=== PATIENT | male | born 1950 | race Caucasian/White ===

== ENCOUNTER → 2017-03-14 | Outpatient (CLI) | payer OTHER ==
[2017-03-14 12:59] LABS: Urine RBC None Seen /hpf (0 - 3)
[2017-03-14 13:02] LABS: Basophils # (auto) 0 uL; Basophils % (auto) 0.9 % (0.0-2.0); Eosinophils # (auto) 0.4 uL; Eosinophils % (auto) 6.7 % (0.0-7.0); Hematocrit 42.4 % (41.0-53.0); Hemoglobin 14.8 g/dL (13.5-17.5); Lymphocytes # (auto) 1.3 uL; Lymphocytes % (auto) 24.2 % (10.0-50.0); Mean Corpuscular Hemoglobin 30.9 pg (28.0-32.0); Mean Corpuscular Hgb Conc. 34.9 g/dL (32.0-36.0); Mean Corpuscular Volume 88.5 fL (80.0-100.0); Mean Platelet Volume 7.9 fL (7.4-10.4); Monocytes # (auto) 0.4 uL; Monocytes % (auto) 7.2 % (0.0-12.0); Neutrophils # (auto) 3.4 uL; Platelet Count (auto) 220 10^3/uL (140-450); Red Cell Distribution Width 12.6 % (11.6-16.0); White Blood Cell 5.5 10^3/uL (4.4-10.8)
[2017-03-14 13:09] LABS: Urine Bilirubin Negative (Negative); Urine Blood Negative /uL (Negative); Urine Color Yellow (Yellow); Urine Glucose Normal (Normal); Urine Ketone Negative (Negative); Urine Mucus FEW (None Seen); Urine Nitrite Negative (Negative); Urine Urobilinogen Normal (Negative)
[2017-03-14 13:37] LABS: Albumin 3.9 g/dL (3.4-5.0); Alkaline Phosphatase 86 U/L (45-117); Anion Gap 11 (5-15); Aspartate Aminotransferase 55 U/L (15-37); BUN/Creatinine Ratio 20.9; Blood Urea Nitrogen 27 mg/dL (7-18); Calcium 9.6 mg/dL (8.5-10.1); Carbon Dioxide 25 mmol/L (21-32); Chloride 104 mmol/L (98-107); Cholesterol 133 mg/dL (< 200); GFR African American 72 mL/min; GFR Non-African American 59 mL/min; Glucose 248 mg/dL (74-106); HDL Cholesterol 31 mg/dL (40-59); Sodium 140 mmol/L (136-145); Total Protein 7.4 g/dL (6.4-8.2); Triglycerides 439 mg/dL (< 150)
== END | disposition home or self-care (01) ==
LOC: LAB 12:40
PROVIDERS: ATTEND Internal Medicine
DX: Z00.01 Encounter for general adult medical examination with abnormal findings (principal); I10 Essential (primary) hypertension; E78.2 Mixed hyperlipidemia
CPT/HCPCS: 36415; 80053; 80061; 81001; 82043; 83036; 84153; 84443; 85025

== ENCOUNTER → 2017-06-27 | Outpatient (CLI) | payer OTHER ==
[2017-06-27 14:59] LABS: Bilirubin, Total 1.1 mg/dL (0.2-1.0); Calcium 9.2 mg/dL (8.5-10.1); Potassium 4.4 mmol/L (3.5-5.1); Total Protein 7.7 g/dL (6.4-8.2)
== END | disposition home or self-care (01) ==
LOC: LAB 13:59
PROVIDERS: ATTEND Internal Medicine
DX: Z00.00 Encounter for general adult medical examination without abnormal findings (principal); I10 Essential (primary) hypertension; E78.2 Mixed hyperlipidemia
CPT/HCPCS: 36415; 80053; 80061; 83036

== ENCOUNTER → 2017-07-05 | Outpatient (CLI) | payer OTHER | END | disposition home or self-care (01) | LOC: LAB 15:53 | PROVIDERS: ATTEND Allergy & Immunology | DX: L50.0 Allergic urticaria (principal) ==

== ENCOUNTER → 2017-12-13 | Outpatient (CLI) | payer OTHER ==
[2017-12-13 14:21] LABS: BUN/Creatinine Ratio 27.1; Potassium 4.2 mmol/L (3.5-5.1); Total Protein 7.4 g/dL (6.4-8.2)
== END | disposition home or self-care (01) ==
LOC: LAB 13:15
PROVIDERS: ATTEND Physician Assistant
DX: I10 Essential (primary) hypertension (principal); E11.65 Type 2 diabetes mellitus with hyperglycemia; H81.02 Meniere's disease, left ear
CPT/HCPCS: 36415; 80053; 83036

== ENCOUNTER → 2018-02-06 | Outpatient (CLI) | payer OTHER | END | disposition home or self-care (01) | LOC: LAB 11:43 | PROVIDERS: ATTEND Psychiatry & Neurology Neurology | DX: M31.6 Other giant cell arteritis (principal) | CPT/HCPCS: 36415; 85652 ==

== ENCOUNTER → 2018-03-12 | Outpatient (CLI) | payer OTHER ==
[2018-03-12 13:16] LABS: Basophils # (auto) 0.1 uL; Basophils % (auto) 1.2 % (0.0-2.0); Eosinophils # (auto) 0.2 uL; Hematocrit 38.5 % (41.0-53.0); Hemoglobin 13.3 g/dL (13.5-17.5); Lymphocytes # (auto) 1.3 uL; Lymphocytes % (auto) 28.1 % (10.0-50.0); Mean Corpuscular Hemoglobin 31.1 pg (28.0-32.0); Mean Corpuscular Hgb Conc. 34.5 g/dL (32.0-36.0); Mean Corpuscular Volume 90.2 fL (80.0-100.0); Monocytes # (auto) 0.3 uL; Monocytes % (auto) 7.3 % (0.0-12.0); Neutrophils # (auto) 2.7 uL; Neutrophils % (auto) 58.4 % (37.0-80.0); Platelet Count (auto) 154 10^3/uL (140-450); Red Blood Cells 4.27 10^6/uL (4.5-5.90); Red Cell Distribution Width 13.2 % (11.8-14.3); White Blood Cell 4.7 10^3/uL (4.4-10.8)
[2018-03-12 13:40] LABS: Albumin 3.6 g/dL (3.4-5.0); BUN/Creatinine Ratio 16.2; Bilirubin, Total 0.8 mg/dL (0.2-1.0); Calcium 9.2 mg/dL (8.5-10.1); Potassium 3.9 mmol/L (3.5-5.1); Total Protein 7.4 g/dL (6.4-8.2)
== END | disposition home or self-care (01) ==
LOC: LAB 12:38
PROVIDERS: ATTEND Physician Assistant
DX: E11.22 Type 2 diabetes mellitus with diabetic chronic kidney disease (principal); N18.2 Chronic kidney disease, stage 2 (mild); K76.0 Fatty (change of) liver, not elsewhere classified; E78.1 Pure hyperglyceridemia; E11.69 Type 2 diabetes mellitus with other specified complication; R53.83 Other fatigue
CPT/HCPCS: 36415; 80053; 80061; 83036; 84153; 84403; 85025

== ENCOUNTER → 2018-03-18 | Outpatient (CLI) | payer OTHER | END | disposition home or self-care (01) | LOC: LAB 15:34 | PROVIDERS: ATTEND Physician Assistant | DX: Z12.11 Encounter for screening for malignant neoplasm of colon (principal); E29.1 Testicular hypofunction; I12.9 Hypertensive chronic kidney disease with stage 1 through stage 4 chronic kidney disease, or unspecified chronic kidney disease; E11.22 Type 2 diabetes mellitus with diabetic chronic kidney disease; N18.2 Chronic kidney disease, stage 2 (mild) | CPT/HCPCS: 36415; 84403 ==

== ENCOUNTER → 2018-11-06 | Outpatient (CLI) | payer OTHER | END | disposition home or self-care (01) | LOC: LAB 11:53 | PROVIDERS: ATTEND Physician Assistant | DX: Z12.11 Encounter for screening for malignant neoplasm of colon (principal); E11.22 Type 2 diabetes mellitus with diabetic chronic kidney disease; E34.9 Endocrine disorder, unspecified | CPT/HCPCS: 36415; 82043; 83036; 84403 ==

== ENCOUNTER 2019-05-18 10:57 | Emergency (ER) | payer OTHER ==
[~2019-05-18] VITALS: Ht 185.4 cm; Wt 124.3 kg
[2019-05-18 12:33] LABS: Alanine Aminotransferase 57 U/L (16-61); Anion Gap 10 (5-15); BUN/Creatinine Ratio 19.4; Blood Urea Nitrogen 24 mg/dL (7-18); Calcium 8.9 mg/dL (8.5-10.1); Carbon Dioxide 25 mmol/L (21-32); Chloride 106 mmol/L (98-107); GFR African American 75 mL/min; GFR Non-African American 62 mL/min; Glucose 251 mg/dL (74-106); Sodium 141 mmol/L (136-145)
[2019-05-18 12:36] LABS: Alkaline Phosphatase 113 U/L (45-117); Aspartate Aminotransferase 27 U/L (15-37); Bilirubin, Total 0.8 mg/dL (0.2-1.0); Total Protein 7.5 g/dL (6.4-8.2)
[2019-05-18 13:47] LABS: Lactic Acid w/Reflex 3.3 mmol/L (0.4-2.0)
[2019-05-18 13:52] LABS: Amylase 95 U/L (25-115); Lipase 201 U/L (73-393)
[2019-05-18 14:25] LABS: Basophils # (auto) 0.1 uL; Basophils % (auto) 0.8 % (0.0-2.0); Eosinophils # (auto) 0.5 uL; Eosinophils % (auto) 7.2 % (0.0-7.0); Hematocrit 42.5 % (41.0-53.0); Hemoglobin 14.9 g/dL (13.5-17.5); Lymphocytes # (auto) 1.8 uL; Lymphocytes % (auto) 24.1 % (10.0-50.0); Mean Corpuscular Hemoglobin 31.9 pg (28.0-32.0); Mean Corpuscular Volume 91.1 fL (80.0-100.0); Monocytes # (auto) 0.8 uL; Monocytes % (auto) 10.3 % (0.0-12.0); Neutrophils # (auto) 4.3 uL; Neutrophils % (auto) 57.6 % (37.0-80.0); Nucleated Red Blood Cells % 0.2 %; Platelet Count (auto) 159 10^3/uL (140-450); Red Blood Cells 4.67 10^6/uL (4.5-5.90); White Blood Cell 7.5 10^3/uL (4.4-10.8)
[2019-05-18] MEDS ORDERED: IOHEXOL 300 MG/ML 100ML BOTTLE IJ ONE (14:35)
[2019-05-18 17:00] VITALS: BP 135/56
[2019-05-18] MEDS ORDERED: SODIUM CHLORIDE 0.9% 1,000 ML IV ONE (17:00)
[2019-05-18] MEDS ORDERED: cefTRIAXone 1GM/50ML D5W 50 ML IV ONE (17:00)
== END 2019-05-18 18:26 | disposition home or self-care (01) ==
LOC: ER 10:59
DX: R07.89 Other chest pain (principal); E11.9 Type 2 diabetes mellitus without complications; L03.211 Cellulitis of face
CPT/HCPCS: 36415; 70487; 80053; 82150; 83605; 83690; 83880; 84484; 85025; 86695; 86696; 87040; 93005; 94761; 96365; 99284; J0696; J7030; Q9967

== ENCOUNTER → 2019-10-21 | Outpatient (CLI) | payer OTHER ==
[2019-10-21 15:32] LABS: Urine Bacteria NONE SEEN /hpf (None Seen); Urine Blood Negative /uL (Negative); Urine Mucus FEW (None Seen); Urine Specific Gravity 1.017 (1.001-1.035); Urine WBC 9 /hpf (0 - 3)
[2019-10-21 15:37] LABS: Basophils # (auto) 0.1 uL; Basophils % (auto) 1.1 % (0.0-2.0); Eosinophils # (auto) 0.5 uL; Eosinophils % (auto) 9.5 % (0.0-7.0); Hematocrit 40.8 % (41.0-53.0); Hemoglobin 14.3 g/dL (13.5-17.5); Lymphocytes # (auto) 1.3 uL; Lymphocytes % (auto) 26.4 % (10.0-50.0); Mean Corpuscular Hemoglobin 31.7 pg (28.0-32.0); Mean Corpuscular Volume 90.5 fL (80.0-100.0); Monocytes # (auto) 0.4 uL; Monocytes % (auto) 8.8 % (0.0-12.0); Neutrophils # (auto) 2.6 uL; Neutrophils % (auto) 54.2 % (37.0-80.0); Nucleated Red Blood Cells % 0.1 %; Platelet Count (auto) 193 10^3/uL (140-450); Red Blood Cells 4.51 10^6/uL (4.5-5.90); Red Cell Distribution Width 12.2 % (11.8-14.3); White Blood Cell 4.7 10^3/uL (4.4-10.8)
[2019-10-21 16:11] LABS: Anion Gap 9 (5-15); Blood Urea Nitrogen 22 mg/dL (7-18); Calcium 9.5 mg/dL (8.5-10.1); Carbon Dioxide 27 mmol/L (21-32); Chloride 105 mmol/L (98-107); Glucose 230 mg/dL (74-106); Potassium 4.8 mmol/L (3.5-5.1); Sodium 141 mmol/L (136-145)
[2019-10-21 16:16] LABS: Alanine Aminotransferase 79 U/L (16-61); Alkaline Phosphatase 82 U/L (45-117); Aspartate Aminotransferase 52 U/L (15-37); BUN/Creatinine Ratio 18.2; Bilirubin, Total 0.8 mg/dL (0.2-1.0); Cholesterol 159 mg/dL (< 200); GFR African American 77 mL/min; GFR Non-African American 63 mL/min; HDL Cholesterol 37 mg/dL (40-59); Total Protein 7.2 g/dL (6.4-8.2); Triglycerides 513 mg/dL (< 150)
== END | disposition home or self-care (01) ==
LOC: LAB 15:03
PROVIDERS: ATTEND Physician Assistant
DX: E11.65 Type 2 diabetes mellitus with hyperglycemia (principal); E11.22 Type 2 diabetes mellitus with diabetic chronic kidney disease; N18.2 Chronic kidney disease, stage 2 (mild); R33.9 Retention of urine, unspecified; E34.9 Endocrine disorder, unspecified; H81.03 Meniere's disease, bilateral; E78.1 Pure hyperglyceridemia
CPT/HCPCS: 36415; 80053; 80061; 81001; 83036; 84153; 84403; 85025

== ENCOUNTER → 2020-01-20 | Outpatient (CLI) | payer OTHER ==
[2020-01-20 15:51] LABS: BUN/Creatinine Ratio 17.3; Calcium 9.7 mg/dL (8.5-10.1); Potassium 4.2 mmol/L (3.5-5.1)
== END | disposition home or self-care (01) ==
LOC: LAB 15:03
PROVIDERS: ATTEND Internal Medicine
DX: I50.9 Heart failure, unspecified (principal); R06.9 Unspecified abnormalities of breathing
CPT/HCPCS: 36415; 80048; 83880

== ENCOUNTER → 2020-02-10 | Outpatient (CLI) | payer OTHER | END | disposition home or self-care (01) | LOC: XYW 10:50 | PROVIDERS: ATTEND Internal Medicine | DX: I44.7 Left bundle-branch block, unspecified (principal) | CPT/HCPCS: 93306 ==

== ENCOUNTER → 2020-04-04 | Outpatient (CLI) | payer OTHER ==
[~2020-04-04] MED LIST: ALBUAER3 IN; ASPI-543 PO; BENZ200C64 PO; CHLO25TA22 PO; FENO145T27 PO; GLIP10TA9 PO; ICOS1CAP PO; MAGN400T40 PO; METF-370 PO; METO25TA5 PO; PIO30T PO; PREG200C19 PO; TAMS0.4C36 PO
[2020-04-04 17:07] LABS: Calcium 8.7 mg/dL (8.5-10.1); Potassium 3.8 mmol/L (3.5-5.1)
== END | disposition home or self-care (01) ==
LOC: LAB 15:29
PROVIDERS: ATTEND Internal Medicine
DX: I12.9 Hypertensive chronic kidney disease with stage 1 through stage 4 chronic kidney disease, or unspecified chronic kidney disease (principal); E11.9 Type 2 diabetes mellitus without complications; I10 Essential (primary) hypertension
CPT/HCPCS: 36415; 80048

== ENCOUNTER → 2020-06-23 | Outpatient (CLI) | payer OTHER ==
[~2020-06-23] VITALS: Ht 188 cm; Wt 122.5 kg
[~2020-06-23] MED LIST changes: +ADENOSINE 103 MG in GIVE UN-DILUTED 0 ML IV STA
== END | disposition home or self-care (01) ==
LOC: XY 08:16
PROVIDERS: ATTEND Internal Medicine
DX: I10 Essential (primary) hypertension (principal)
CPT/HCPCS: 78452; 93017; A9500; J0153

== ENCOUNTER → 2020-08-01 | Outpatient (CLI) | payer OTHER ==
[2020-08-01 12:22] LABS: Urine Bacteria NONE SEEN /hpf (None Seen); Urine Blood Negative /uL (Negative); Urine Hyaline Cast FEW /lpf (0 - 2); Urine Specific Gravity 1.016 (1.001-1.035); Urine WBC 4 /hpf (0 - 3)
[2020-08-01 12:49] LABS: BUN/Creatinine Ratio 16.9; Calcium 8.7 mg/dL (8.5-10.1); Phosphorus 2.3 mg/dL (2.5-4.90); Potassium 4.4 mmol/L (3.5-5.1)
[2020-08-01 12:50] LABS: Protein, Urine 31.5 mg/dL (0.0-11.9)
== END | disposition home or self-care (01) ==
LOC: LAB 11:55
PROVIDERS: ATTEND Internal Medicine Nephrology
DX: E11.22 Type 2 diabetes mellitus with diabetic chronic kidney disease (principal); N18.3 Chronic kidney disease, stage 3 (moderate)
CPT/HCPCS: 36415; 80048; 81001; 82306; 82570; 83735; 83970; 84100; 84156

== ENCOUNTER → 2020-08-11 | Outpatient (CLI) | payer OTHER ==
[~2020-08-11] MED LIST changes: -ADENOSINE 103 MG in GIVE UN-DILUTED 0 ML IV STA
[2020-08-11 09:35] LABS: Basophils # (auto) 0.1 10 ^3/uL (0-0.2); Basophils % (auto) 0.7 % (0.0-2.0); Eosinophils # (auto) 0.5 10 ^3/uL (0-0.8); Eosinophils % (auto) 5.6 % (0.0-7.0); Hematocrit 42.5 % (41.0-53.0); Hemoglobin 14.6 g/dL (13.5-17.5); Lymphocytes # (auto) 1.9 10 ^3/uL (0.4-5.4); Lymphocytes % (auto) 21.6 % (10.0-50.0); Mean Corpuscular Hemoglobin 29.8 pg (28.0-32.0); Mean Corpuscular Hgb Conc. 34.3 g/dL (32.0-36.0); Mean Corpuscular Volume 87.1 fL (80.0-100.0); Monocytes # (auto) 0.8 10 ^3/uL (0-1.3); Monocytes % (auto) 9.3 % (0.0-12.0); Neutrophils # (auto) 5.6 10 ^3/uL (1.6-8.6); Neutrophils % (auto) 62.8 % (37.0-80.0); Nucleated Red Blood Cells % 0.1 %; Platelet Count (auto) 235 10^3/uL (140-450); Red Blood Cells 4.88 10^6/uL (4.5-5.90); Red Cell Distribution Width 12.8 % (11.8-14.3)
[2020-08-11 09:52] LABS: INR 1.01 (0.9-1.15); Partial Thromboplastin Time 27.6 sec (23.0-31.2)
[2020-08-11 10:10] LABS: Albumin 3.8 g/dL (3.4-5.0); Calcium 9.6 mg/dL (8.5-10.1); Potassium 3.8 mmol/L (3.5-5.1)
[2020-08-11 10:16] LABS: BUN/Creatinine Ratio 24.4; Bilirubin, Total 0.6 mg/dL (0.2-1.0); Total Protein 7.4 g/dL (6.4-8.2)
== END | disposition home or self-care (01) ==
LOC: LAB 09:21
PROVIDERS: ATTEND Internal Medicine
DX: Z01.812 Encounter for preprocedural laboratory examination (principal)
CPT/HCPCS: 36415; 80053; 85025; 85610; 85730

== ENCOUNTER 2020-08-15 07:54 | Day surgery (SDC) | payer OTHER ==
[~2020-08-15] VITALS: Ht 188 cm; Wt 120.7 kg
[2020-08-15] MEDS ORDERED: VERAPAMIL 2.5MG/ML INJ 2ML VIAL IV ONE (09:50)
[2020-08-15] MEDS ORDERED: ANGIOMAX 250 MG VIAL IV ONE (09:50)
[2020-08-15] MEDS ORDERED: fentaNYL CITRATE 100 MCG/2 ML VL ONE (09:50)
[2020-08-15] MEDS ORDERED: HEPARIN SODIUM (PORCINE) 5000 UNITS/ML 1ML VIAL ONE (09:50)
[2020-08-15] MEDS ORDERED: MIDAZOLAM HCL 1MG/1ML-2 ML VIAL ONE (09:50)
[2020-08-15] MEDS ORDERED: IODIXANOL 320MG/ML 100ML BTL IV ONE (09:51)
[2020-08-15] MEDS ORDERED: SODIUM CHL 0.9% 50 ML ONE (09:51)
[2020-08-15] MEDS ORDERED: LIDOCAINE 2%HCL (LOCAL ANESTH.) INJ 20ML MDV ONE (09:51)
[2020-08-15] MEDS ORDERED: ONDANSETRON HCL 4 MG/2 ML VIAL IV PRN (10:45)
[2020-08-15] MEDS ORDERED: diphenhdrAMINE HCL 50 MG/1 ML VL ONE (12:57)
[2020-08-15] MEDS ORDERED: diphenhdrAMINE HCL 50 MG/1 ML VL IV ONE (13:00)
[2020-08-15] MEDS ORDERED: methylPREDNISolone SOD SUCC 125 MG/2 ML VL IV ONE (13:15)
[2020-08-15] MEDS ORDERED: FAMOTIDINE (10MG/ML) 2ML VL IV ONE (13:15)
== END 2020-08-15 14:34 | disposition home or self-care (01) ==
LOC: CATH 07:54
PROVIDERS: ATTEND Internal Medicine
DX: R94.39 Abnormal result of other cardiovascular function study (principal); I10 Essential (primary) hypertension; E11.9 Type 2 diabetes mellitus without complications; Z91.018 Allergy to other foods; Z79.82 Long term (current) use of aspirin; Z79.899 Other long term (current) drug therapy; Z88.0 Allergy status to penicillin; Z79.84 Long term (current) use of oral hypoglycemic drugs; Z20.828 Contact with and (suspected) exposure to other viral communicable diseases; Z98.890 Other specified postprocedural states
CPT/HCPCS: 93458; C1887; C1894; J0583; J1200; J1644; J2250; J2930; J3010; J3490; J7030; Q9967; U0003; 99152

== ENCOUNTER → 2020-09-28 | Outpatient (CLI) | payer OTHER ==
[2020-09-28 15:35] LABS: BUN/Creatinine Ratio 19.1; Calcium 9.2 mg/dL (8.5-10.1)
== END | disposition home or self-care (01) ==
LOC: LAB 14:46
PROVIDERS: ATTEND Urology
DX: Z12.5 Encounter for screening for malignant neoplasm of prostate (principal); E11.42 Type 2 diabetes mellitus with diabetic polyneuropathy; E11.22 Type 2 diabetes mellitus with diabetic chronic kidney disease; N18.30 Chronic kidney disease, stage 3 unspecified
CPT/HCPCS: 36415; 80048; 84153

== ENCOUNTER → 2020-12-07 | Outpatient (CLI) | payer OTHER ==
[2020-12-07 16:59] LABS: Basophils # (auto) 0.1 10 ^3/uL (0-0.2); Eosinophils # (auto) 0.4 10 ^3/uL (0-0.8); Hematocrit 40.1 % (41.0-53.0); Lymphocytes # (auto) 1.4 10 ^3/uL (0.4-5.4); Mean Corpuscular Volume 85.3 fL (80.0-100.0); Monocytes # (auto) 0.5 10 ^3/uL (0-1.3)
[2020-12-07 17:02] LABS: Basophils % (auto) 1.2 % (0.0-2.0); Eosinophils % (auto) 6.1 % (0.0-7.0); Hemoglobin 14.6 g/dL (13.5-17.5); Lymphocytes % (auto) 23.8 % (10.0-50.0); Mean Corpuscular Hemoglobin 31.2 pg (28.0-32.0); Mean Corpuscular Hgb Conc. 36.5 g/dL (32.0-36.0); Monocytes % (auto) 8.3 % (0.0-12.0); Neutrophils # (auto) 3.5 10 ^3/uL (1.6-8.6); Neutrophils % (auto) 60.6 % (37.0-80.0); Nucleated Red Blood Cells % 1.1 %; Platelet Count (auto) 191 10^3/uL (140-450); Red Cell Distribution Width 12.5 % (11.8-14.3); White Blood Cell 5.8 10^3/uL (4.4-10.8)
[2020-12-07 17:17] LABS: Urine Bacteria NONE SEEN /hpf (None Seen); Urine Blood Negative /uL (Negative); Urine Specific Gravity 1.026 (1.001-1.035); Urine WBC 3 /hpf (0 - 3)
[2020-12-07 17:25] LABS: Protein, Urine 14.4 mg/dL (0.0-11.9)
[2020-12-07 17:36] LABS: Micro Albumin 72.8 mg/L (0-30.0)
[2020-12-07 17:54] LABS: Calcium 8.9 mg/dL (8.5-10.1); Magnesium 2.2 mg/dL (1.6-2.6); Potassium 3.3 mmol/L (3.5-5.1)
[2020-12-07 17:56] LABS: BUN/Creatinine Ratio 22.7; Phosphorus 2.3 mg/dL (2.5-4.90)
== END | disposition home or self-care (01) ==
LOC: LAB 16:42
PROVIDERS: ATTEND Internal Medicine Nephrology
DX: E11.22 Type 2 diabetes mellitus with diabetic chronic kidney disease (principal); N18.30 Chronic kidney disease, stage 3 unspecified
CPT/HCPCS: 36415; 80048; 81001; 82043; 82570; 83735; 84100; 84156; 85025

== ENCOUNTER 2020-12-25 20:46 | Inpatient (IN) | payer OTHER ==
[~2020-12-25] VITALS: Ht 182.9 cm; Wt 129.1 kg
[~2020-12-25 20:46] MED LIST changes: +CHLO25TA2 PO; -CHLO25TA22 PO
[2020-12-25] MEDS ORDERED: InsuLIN REG 1unit/0.01ml Soln (100units/ml) IV ONE (21:15)
[2020-12-25] MEDS ORDERED: SUCCINYLCHOLINE CHLORIDE 20 MG/ML 10ML VIAL IV ONE (21:15)
[2020-12-25] MEDS ORDERED: ETOMIDATE (2MG/ML) 20ML VIAL IV ONE (21:15)
[2020-12-25] MEDS ORDERED: SODIUM CHLORIDE 0.9% 1,000 ML IV ONE (21:15)
[2020-12-25 22:14] VITALS: BP 105/68
[2020-12-25] MEDS ORDERED: MIDAZOLAM DRIP 50 mg/50mL 50 ML IV SCH (22:15)
[2020-12-25] MEDS ORDERED: POTASSIUM CHL 20MEQ/100ML 100 ML IV PRN (22:45)
[2020-12-25] MEDS ORDERED: MAGNESIUM SULFATE 1GM/100ML 200 ML IV ONE (22:45)
[2020-12-25] MEDS: SOD CHL 0.9%/ KCL 20MEQ 1,000 ML IV SCH (22:45)
[2020-12-25] MEDS ORDERED: POTASSIUM CHL 10MEQ/100ML 300 ML IV PRN (22:45)
[2020-12-25] MEDS ORDERED: InsuLIN REG 1unit/0.01ml Soln (100units/ml) SC PRN ×2 (22:45)
[2020-12-25] MEDS: SODIUM CHLORIDE 0.9% 1,000 ML IV SCH (22:45)
[2020-12-25] MEDS: D5W/SOD CHL 0.45%/KCL 20MEQ 1,000 ML IV SCH (22:45)
[2020-12-25] MEDS ORDERED: InsuLIN R (HUMAN) 100 UNITS in SODIUM CHL 0.9% 99 ML IV SCH ×8 (22:45)
[2020-12-25] MEDS ORDERED: SODIUM BICARBONATE 8.4 % INJ 50ML VIAL IV ONE (22:45)
[2020-12-25] MEDS ORDERED: D5W/SOD CHL 0.45%/KCL 20MEQ 1,000 ML IV SCH (22:45)
[2020-12-25] MEDS ORDERED: DEXTROSE (50%) 50ML SYRG IV PRN (22:45)
[2020-12-25] MEDS ORDERED: POTASSIUM CHL 20MEQ/100ML 200 ML IV PRN (22:45)
[2020-12-25] MEDS: SODIUM BICARBONATE 50ML VIAL 50 ML in D5W/SOD CHL 0.45% 1,000 ML IV SCH (22:45)
[2020-12-25 23:46] LABS: Hemoglobin 19.2 g/dL (13.5-17.5); Mean Corpuscular Hemoglobin 30.3 pg (28.0-32.0); Mean Corpuscular Hgb Conc. 32.7 g/dL (32.0-36.0); Mean Corpuscular Volume 92.7 fL (80.0-100.0); Platelet Count (auto) 221 10^3/uL (140-450); Red Blood Cells 6.35 10^6/uL (4.5-5.90); Red Cell Distribution Width 13.1 % (11.8-14.3); White Blood Cell 27.7 10^3/uL (4.4-10.8)
[2020-12-25 23:48] LABS: Hematocrit 58.9 % (41.0-53.0)
[2020-12-25 23:50] LABS: Basophils % (manual) 0 (0.0-2.0); Blast Cells 0; Eosinophils % (manual) 0 (0-7); Metamyelocytes % 0; Myelocytes % 0; Promyelocytes % 0; Reactive Lymphocytes 0
[2020-12-25 23:51] LABS: INR 1.12 (0.9-1.15); Partial Thromboplastin Time 26.9 sec (23.0-31.2)
[2020-12-25 23:53] LABS: Calcium 8.5 mg/dL (8.5-10.1); Potassium 4.7 mmol/L (3.5-5.1)
[2020-12-25 23:57] LABS: Bilirubin, Total 1.5 mg/dL (0.2-1.0); Total Protein 8.5 g/dL (6.4-8.2)
[2020-12-26] MEDS ORDERED: VANCOMYCIN 1GM/250ML 250 ML IV ONE
[2020-12-26] MEDS ORDERED: cefTRIAXone 1GM/50ML D5W 50 ML IV ONE
[2020-12-26 00:13] LABS: BUN/Creatinine Ratio 16.8
[2020-12-26 00:15] LABS: Phosphorus 12.7 mg/dL (2.5-4.90)
[2020-12-26] MEDS: ACCU-CHEK COMFORT CURVE STRIP VI SCH ×23 (00:26→22:37)
[2020-12-26 00:32] LABS: Band Neutrophils % (manual) 17; Lymphocytes % (manual) 7 (10.0-50.0); Monocytes % (manual) 9 (0-12)
[2020-12-26] MEDS: SODIUM CHLORIDE 0.9% 1,000 ML IV SCH (01:10)
[2020-12-26] MEDS ORDERED: SODIUM CHLORIDE 0.9% 1,000 ML IV SCH ×4 (02:45→10:45)
[2020-12-26 03:05] VITALS: BP 110/72
[2020-12-26] MEDS: D5W/SOD CHL 0.45%/KCL 20MEQ 1,000 ML IV SCH (04:28)
[2020-12-26] MEDS ORDERED: NITROGLYCERIN 0.4 MG SL TAB SL PRN (04:45)
[2020-12-26] MEDS ORDERED: SODIUM BICARBONATE 50ML VIAL 100 ML in SOD CHL 0.45% 1,000 ML IV SCH (04:45)
[2020-12-26] MEDS ORDERED: DEXTROSE (50%) 50ML SYRG IV PRN ×5 (04:45→16:15)
[2020-12-26] MEDS ORDERED: ONDANSETRON HCL 4 MG/2 ML VIAL IV PRN (04:45)
[2020-12-26] MEDS ORDERED: InsuLIN R (HUMAN) 100 UNITS in SODIUM CHL 0.9% 99 ML IV SCH ×3 (04:45→11:00)
[2020-12-26] MEDS ORDERED: INSULIN LANTUS (GLARGINE) 1 /0.01ml (100units/ml) SC ONE ×5 (04:45→16:15)
[2020-12-26] MEDS: MIDAZOLAM DRIP 50 mg/50mL 50 ML IV SCH (04:45)
[2020-12-26] MEDS: SOD CHL 0.9%/ KCL 20MEQ 1,000 ML IV SCH (05:25)
[2020-12-26 06:00] VITALS: BP 104/79
[2020-12-26] MEDS ORDERED: SODIUM BICARBONATE 8.4 % INJ 50ML VIAL IV ONE (06:44)
[2020-12-26] MEDS ORDERED: POTASSIUM CHL 10MEQ/100ML 100 ML IV PRN (06:45)
[2020-12-26] MEDS ORDERED: INSULIN LANTUS (GLARGINE) 1 /0.01ml (100units/ml) SC SCH (07:00)
[2020-12-26] MEDS ORDERED: InsuLIN REG 1unit/0.01ml Soln (100units/ml) SC SCH ×5 (07:00→22:00)
[2020-12-26] MEDS: SODIUM BICARBONATE 50ML VIAL 50 ML in D5W/SOD CHL 0.45% 1,000 ML IV SCH (07:09)
[2020-12-26 07:25] LABS: Urine Bacteria NONE SEEN /hpf (None Seen); Urine Blood 1+ /uL (Negative); Urine Hyaline Cast FEW /lpf (0 - 2); Urine Specific Gravity 1.023 (1.001-1.035); Urine WBC 9 /hpf (0 - 3)
[2020-12-26 07:32] LABS: Calcium 6.9 mg/dL (8.5-10.1); Potassium 4.1 mmol/L (3.5-5.1)
[2020-12-26 07:37] LABS: BUN/Creatinine Ratio 17.3
[2020-12-26] MEDS: InsuLIN R (HUMAN) 100 UNITS in SODIUM CHL 0.9% 99 ML IV SCH ×9 (09:00→22:49)
[2020-12-26] MEDS ORDERED: ACCU-CHEK COMFORT CURVE STRIP VI SCH (09:00)
[2020-12-26] MEDS ORDERED: ATORVASTATIN 20 MG TAB PO SCH ×2 (10:00→22:00)
[2020-12-26] MEDS ORDERED: ASPirin 81 mg TAB NG SCH (10:00)
[2020-12-26 10:13] LABS: Cholesterol 122 mg/dL (< 200); HDL Cholesterol 31 mg/dL (40-59); LDL Cholesterol 61 mg/dL (< 100); Triglycerides 299 mg/dL (< 150)
[2020-12-26] MEDS: ASPirin 81 mg TAB NG SCH (11:00)
[2020-12-26] MEDS: levoFLOXacin 250MG 50 ML IV SCH (11:07)
[2020-12-26 11:37] LABS: BUN/Creatinine Ratio 16.2; Calcium 6.5 mg/dL (8.5-10.1); Potassium 4.5 mmol/L (3.5-5.1)
[2020-12-26 13:55] VITALS: BP 100/70
[2020-12-26] MEDS ORDERED: PANTOPRAZOLE 40 MG/10 ML VIAL INJ IV ONE (16:00)
[2020-12-26] MEDS ORDERED: SOD CHL 0.45% 1,000 ML IV SCH (16:30)
[2020-12-26] MEDS ORDERED: DOPamine 1600MCG/ML D5W 250 ML IV SCH (16:30)
[2020-12-26] MEDS ORDERED: SODIUM BICARBONATE 50ML VIAL 50 ML in SOD CHL 0.45% 1,000 ML IV SCH (16:30)
[2020-12-26] MEDS: DOPamine 1600MCG/ML D5W 250 ML IV SCH (17:03)
[2020-12-26] MEDS: FREE WATER GT SCH ×2 (18:14→22:11)
[2020-12-26 19:05] VITALS: BP 133/73
[2020-12-26] MEDS: SOD CHL 0.45% 1,000 ML IV SCH (19:30)
[2020-12-26 22:25] LABS: Lactic Acid w/Reflex 3.3 mmol/L (0.4-2.0)
[2020-12-26 22:35] VITALS: BP 127/75
[2020-12-26 22:39] LABS: Sodium Urine 7 mmol/L (40-220)
[2020-12-26 22:48] LABS: Amphetamine Screen, Urine NEGATIVE (NEGATIVE); Barbiturate Scree,Urine NEGATIVE (NEGATIVE); Benzodiazephine Screen, Urine POSITIVE (NEGATIVE); Cannabinoid Screen, Urine POSITIVE (NEGATIVE); Cocaine Screen, Urine NEGATIVE (NEGATIVE); Opiate Scree,Urine NEGATIVE (NEGATIVE); Phencyclidine Screen, Urine NEGATIVE (NEGATIVE)
[2020-12-26 22:50] LABS: Protein, Urine 351.1 mg/dL (0.0-11.9)
[2020-12-27] MEDS: ACCU-CHEK COMFORT CURVE STRIP VI SCH ×16 (00:38→22:30)
[2020-12-27] MEDS: InsuLIN R (HUMAN) 100 UNITS in SODIUM CHL 0.9% 99 ML IV SCH ×3 (00:39→05:50)
[2020-12-27 00:50] LABS: Folate (Folic Acid) > 24.00 ng/mL (5.38-24)
[2020-12-27 01:56] LABS: Basophils # (auto) 0 10 ^3/uL (0-0.2); Basophils % (auto) 0.2 % (0.0-2.0); Eosinophils # (auto) 0 10 ^3/uL (0-0.8); Hematocrit 46.2 % (41.0-53.0); Lymphocytes # (auto) 1.2 10 ^3/uL (0.4-5.4); Lymphocytes % (auto) 7.8 % (10.0-50.0); Mean Corpuscular Hemoglobin 30.6 pg (28.0-32.0); Mean Corpuscular Hgb Conc. 34.6 g/dL (32.0-36.0); Mean Corpuscular Volume 88.5 fL (80.0-100.0); Monocytes # (auto) 1.8 10 ^3/uL (0-1.3); Neutrophils # (auto) 12.3 10 ^3/uL (1.6-8.6); Platelet Count (auto) 75 10^3/uL (140-450); Red Blood Cells 5.23 10^6/uL (4.5-5.90); White Blood Cell 15.4 10^3/uL (4.4-10.8)
[2020-12-27] MEDS: FREE WATER GT SCH ×6 (02:00→22:00)
[2020-12-27] MEDS: SOD CHL 0.45% 1,000 ML IV SCH ×4 (02:17→22:10)
[2020-12-27 02:24] VITALS: BP 133/69
[2020-12-27 02:55] LABS: BUN/Creatinine Ratio 17.7; Potassium 5.2 mmol/L (3.5-5.1)
[2020-12-27 02:57] LABS: Albumin 2.5 g/dL (3.4-5.0); Bilirubin, Total 0.8 mg/dL (0.2-1.0); Magnesium 3.1 mg/dL (1.6-2.6); Total Protein 6.1 g/dL (6.4-8.2)
[2020-12-27 02:59] LABS: Calcium 5.5 mg/dL (8.5-10.1)
[2020-12-27] MEDS ORDERED: CALCIUM GLUC 4.65meq/50ml D5AE 50 ML IV STA (03:04)
[2020-12-27] MEDS ORDERED: CALCIUM GLUC 4.65meq/50ml D5AE 50 ML IV ONE (03:15)
[2020-12-27] MEDS: MIDAZOLAM DRIP 50 mg/50mL 50 ML IV SCH (04:45)
[2020-12-27 06:51] VITALS: BP 139/77
[2020-12-27 07:06] LABS: Basophils # (auto) 0 10 ^3/uL (0-0.2); Basophils % (auto) 0.1 % (0.0-2.0); Eosinophils # (auto) 0 10 ^3/uL (0-0.8); Eosinophils % (auto) 0.1 % (0.0-7.0); Hemoglobin 15.6 g/dL (13.5-17.5); Lymphocytes # (auto) 0.9 10 ^3/uL (0.4-5.4); Lymphocytes % (auto) 6.7 % (10.0-50.0); Mean Corpuscular Hemoglobin 29.9 pg (28.0-32.0); Mean Corpuscular Hgb Conc. 33.9 g/dL (32.0-36.0); Mean Corpuscular Volume 88.1 fL (80.0-100.0); Monocytes # (auto) 1.4 10 ^3/uL (0-1.3); Neutrophils # (auto) 10.5 10 ^3/uL (1.6-8.6); Neutrophils % (auto) 82.1 % (37.0-80.0); Platelet Count (auto) 66 10^3/uL (140-450); Red Blood Cells 5.22 10^6/uL (4.5-5.90); Red Cell Distribution Width 12.6 % (11.8-14.3); White Blood Cell 12.7 10^3/uL (4.4-10.8)
[2020-12-27 07:25] LABS: Potassium 4.7 mmol/L (3.5-5.1)
[2020-12-27 07:44] LABS: Albumin 2.3 g/dL (3.4-5.0); BUN/Creatinine Ratio 17.1; Bilirubin, Total 0.8 mg/dL (0.2-1.0); Magnesium 3.2 mg/dL (1.6-2.6); Phosphorus 8.4 mg/dL (2.5-4.90); Total Protein 5.8 g/dL (6.4-8.2)
[2020-12-27] MEDS: ACETAMINOPHEN 325 MG TAB PO PRN ×2 (07:45→15:43)
[2020-12-27] MEDS ORDERED: INSULIN LANTUS (GLARGINE) 1 /0.01ml (100units/ml) SC SCH ×5 (10:00)
[2020-12-27] MEDS: levoFLOXacin 250MG 50 ML IV SCH (10:15)
[2020-12-27] MEDS: PANTOPRAZOLE 40 MG/10 ML VIAL INJ IV SCH (10:15)
[2020-12-27] MEDS: ASPirin 81 mg TAB NG SCH (10:15)
[2020-12-27] MEDS: INSULIN LANTUS (GLARGINE) 1 /0.01ml (100units/ml) SC SCH (10:33)
[2020-12-27 10:34] VITALS: BP 136/71
[2020-12-27 14:20] VITALS: BP 154/83
[2020-12-27] MEDS: CALCIUM ACETATE 667 MG CAP NG SCH ×2 (14:27→22:00)
[2020-12-27 14:31] LABS: Potassium 4.1 mmol/L (3.5-5.1)
[2020-12-27 14:40] LABS: BUN/Creatinine Ratio 18.1
[2020-12-27 14:54] LABS: Calcium 5.4 mg/dL (8.5-10.1)
[2020-12-27] MEDS ORDERED: DIGOXIN (250MCG/ML) 2 ML AMPULE IV ONE (15:30)
[2020-12-27] MEDS ORDERED: METOPROLOL TARTRATE 25 MG TAB PO ONE (15:45)
[2020-12-27] MEDS ORDERED: AMIODARONE HCL 150 MG in D5W 5% 100 ML IV ONE (16:15)
[2020-12-27] MEDS ORDERED: AMIODARONE 450mg/250ml AE 250 ML IV SCH (16:30)
[2020-12-27] MEDS: DOPamine 1600MCG/ML D5W 250 ML IV SCH (16:30)
[2020-12-27 18:27] VITALS: BP 117/61
[2020-12-27 19:58] LABS: BUN/Creatinine Ratio 17.3; Potassium 5.2 mmol/L (3.5-5.1)
[2020-12-27 21:39] VITALS: BP 105/72
[2020-12-27] MEDS: METOPROLOL TARTRATE 25 MG TAB PO SCH (22:00)
[2020-12-27] MEDS ORDERED: ATORVASTATIN 20 MG TAB PO SCH (22:00)
[2020-12-27] MEDS: AMIODARONE 450mg/250ml AE 250 ML IV SCH (22:30)
[2020-12-28] VITALS (17 sets, daily range): BP systolic 92–147; BP diastolic 58–81
[2020-12-28] MEDS: ACCU-CHEK COMFORT CURVE STRIP VI SCH ×16 (01:30→22:30)
[2020-12-28] MEDS: FREE WATER GT SCH (02:00)
[2020-12-28] MEDS: InsuLIN R (HUMAN) 100 UNITS in SODIUM CHL 0.9% 99 ML IV SCH ×5 (03:00→21:00)
[2020-12-28] MEDS: MIDAZOLAM DRIP 50 mg/50mL 50 ML IV SCH (04:45)
[2020-12-28 05:07] LABS: Basophils # (auto) 0 10 ^3/uL (0-0.2); Eosinophils # (auto) 0 10 ^3/uL (0-0.8); Eosinophils % (auto) 0.1 % (0.0-7.0); Hematocrit 39.4 % (41.0-53.0); Hemoglobin 13.8 g/dL (13.5-17.5); Lymphocytes # (auto) 0.8 10 ^3/uL (0.4-5.4); Lymphocytes % (auto) 7.8 % (10.0-50.0); Mean Corpuscular Hemoglobin 30.9 pg (28.0-32.0); Mean Corpuscular Hgb Conc. 35.1 g/dL (32.0-36.0); Mean Corpuscular Volume 87.9 fL (80.0-100.0); Monocytes % (auto) 9.7 % (0.0-12.0); Neutrophils # (auto) 8.3 10 ^3/uL (1.6-8.6); Neutrophils % (auto) 82.4 % (37.0-80.0); Nucleated Red Blood Cells % 0.1 %; Platelet Count (auto) 49 10^3/uL (140-450); Red Blood Cells 4.48 10^6/uL (4.5-5.90); Red Cell Distribution Width 12.7 % (11.8-14.3); White Blood Cell 10.1 10^3/uL (4.4-10.8)
[2020-12-28] MEDS: SOD CHL 0.45% 1,000 ML IV SCH ×3 (05:12→18:10)
[2020-12-28 05:23] LABS: Potassium 4.3 mmol/L (3.5-5.1)
[2020-12-28 05:32] LABS: Albumin 1.9 g/dL (3.4-5.0); BUN/Creatinine Ratio 17.2; Bilirubin, Total 0.8 mg/dL (0.2-1.0); Total Protein 5.1 g/dL (6.4-8.2)
[2020-12-28] MEDS: CALCIUM ACETATE 667 MG CAP NG SCH ×3 (06:00→22:00)
[2020-12-28 06:04] LABS: Calcium 5.5 mg/dL (8.5-10.1)
[2020-12-28] MEDS: levoFLOXacin 250MG 50 ML IV SCH (10:03)
[2020-12-28] MEDS: ASPirin 81 mg TAB NG SCH (10:03)
[2020-12-28] MEDS: PANTOPRAZOLE 40 MG/10 ML VIAL INJ IV SCH (10:03)
[2020-12-28] MEDS: METOPROLOL TARTRATE 25 MG TAB PO SCH ×3 (10:04→23:00)
[2020-12-28] MEDS: INSULIN LANTUS (GLARGINE) 1 /0.01ml (100units/ml) SC SCH (10:05)
[2020-12-28] MEDS: DOPamine 1600MCG/ML D5W 250 ML IV SCH (12:32)
[2020-12-28] MEDS: BUMETANIDE INJECTION 12.5 MG in GIVE UN-DILUTED 0 ML IV SCH (13:00)
[2020-12-28] MEDS: AMIODARONE 450mg/250ml AE 250 ML IV SCH (13:30)
[2020-12-28] MEDS: SULFAMETHOX W/TRIMETH(800/160MG) DS TAB PO SCH (22:00)
[2020-12-29] VITALS (44 sets, daily range): BP systolic 0–150; BP diastolic 0–85
[2020-12-29] MEDS: SOD CHL 0.45% 1,000 ML IV SCH ×4 (00:50→23:00)
[2020-12-29] MEDS ORDERED: BUMETANIDE INJECTION 50 ML ONE (01:15)
[2020-12-29] MEDS: ACCU-CHEK COMFORT CURVE STRIP VI SCH ×18 (01:33→23:51)
[2020-12-29 04:19] LABS: Basophils # (auto) 0 10 ^3/uL (0-0.2); Eosinophils # (auto) 0.1 10 ^3/uL (0-0.8); Lymphocytes # (auto) 0.8 10 ^3/uL (0.4-5.4); Mean Corpuscular Hemoglobin 30.9 pg (28.0-32.0); Neutrophils # (auto) 7.7 10 ^3/uL (1.6-8.6); Platelet Count (auto) 57 10^3/uL (140-450); White Blood Cell 9.6 10^3/uL (4.4-10.8)
[2020-12-29 04:21] LABS: Basophils % (auto) 0.2 % (0.0-2.0); Eosinophils % (auto) 1.1 % (0.0-7.0); Hematocrit 36.2 % (41.0-53.0); Hemoglobin 12.8 g/dL (13.5-17.5); Lymphocytes % (auto) 7.8 % (10.0-50.0); Mean Corpuscular Hgb Conc. 35.4 g/dL (32.0-36.0); Mean Corpuscular Volume 87.2 fL (80.0-100.0); Monocytes # (auto) 1.1 10 ^3/uL (0-1.3); Monocytes % (auto) 11.1 % (0.0-12.0); Neutrophils % (auto) 79.8 % (37.0-80.0); Nucleated Red Blood Cells % 0.2 %; Red Blood Cells 4.15 10^6/uL (4.5-5.90); Red Cell Distribution Width 12.4 % (11.8-14.3)
[2020-12-29 04:37] LABS: Albumin 1.7 g/dL (3.4-5.0); Magnesium 2.6 mg/dL (1.6-2.6); Potassium 4.7 mmol/L (3.5-5.1)
[2020-12-29] MEDS: MIDAZOLAM DRIP 50 mg/50mL 50 ML IV SCH ×2 (04:45→23:43)
[2020-12-29 04:48] LABS: BUN/Creatinine Ratio 17.1; Bilirubin, Total 0.5 mg/dL (0.2-1.0)
[2020-12-29 05:19] LABS: Calcium 5.7 mg/dL (8.5-10.1)
[2020-12-29] MEDS: AMIODARONE 450mg/250ml AE 250 ML IV SCH (06:00)
[2020-12-29] MEDS: CALCIUM ACETATE 667 MG CAP NG SCH ×3 (06:24→22:00)
[2020-12-29] MEDS: PROPOFOL 100 ML IV SCH (08:30)
[2020-12-29] MEDS: INSULIN LANTUS (GLARGINE) 1 /0.01ml (100units/ml) SC SCH (10:00)
[2020-12-29] MEDS: SULFAMETHOX W/TRIMETH(800/160MG) DS TAB PO SCH ×2 (10:00→22:00)
[2020-12-29] MEDS: PANTOPRAZOLE 40 MG/10 ML VIAL INJ IV SCH (10:00)
[2020-12-29] MEDS: ASPirin 81 mg TAB NG SCH (10:00)
[2020-12-29] MEDS: InsuLIN R (HUMAN) 100 UNITS in SODIUM CHL 0.9% 99 ML IV SCH (11:12)
[2020-12-29] MEDS ORDERED: AMIODARONE HCL 200 MG TAB PO ONE (12:30)
[2020-12-29] MEDS ORDERED: DEXTROSE (50%) 50ML SYRG IV PRN (13:30)
[2020-12-29] MEDS ORDERED: InsuLIN R (HUMAN) 100 UNITS in SODIUM CHL 0.9% 99 ML IV SCH (13:30)
[2020-12-29] MEDS: BUMETANIDE INJECTION 12.5 MG in GIVE UN-DILUTED 0 ML IV SCH (13:56)
[2020-12-29] MEDS: DOPamine 1600MCG/ML D5W 250 ML IV SCH (16:30)
[2020-12-29] MEDS: METOPROLOL TARTRATE 25 MG TAB PO SCH ×2 (22:00→23:50)
[2020-12-29] MEDS: AMIODARONE HCL 200 MG TAB PO SCH (22:00)
[2020-12-30] VITALS (40 sets, daily range): BP systolic 111–168; BP diastolic 60–99
[2020-12-30] MEDS: ACCU-CHEK COMFORT CURVE STRIP VI SCH ×9 (01:30→20:00)
[2020-12-30] MEDS: SOD CHL 0.45% 1,000 ML IV SCH ×4 (03:30→23:30)
[2020-12-30 05:05] LABS: Hematocrit 39.9 % (41.0-53.0)
[2020-12-30 05:31] LABS: % Iron Saturation 12.4 % (20-55)
[2020-12-30] MEDS: CALCIUM ACETATE 667 MG CAP NG SCH ×3 (06:00→22:00)
[2020-12-30] MEDS ORDERED: SODIUM CHL 0.9% 1000 ML BAG XX ONE (07:00)
[2020-12-30] MEDS: BUMETANIDE INJECTION 12.5 MG in GIVE UN-DILUTED 0 ML IV SCH (07:43)
[2020-12-30] MEDS: PROPOFOL 100 ML IV SCH (08:30)
[2020-12-30] MEDS: ASPirin 81 mg TAB NG SCH (10:10)
[2020-12-30] MEDS: SULFAMETHOX W/TRIMETH(800/160MG) DS TAB PO SCH ×2 (10:10→22:00)
[2020-12-30] MEDS: PANTOPRAZOLE 40 MG/10 ML VIAL INJ IV SCH (10:10)
[2020-12-30] MEDS: AMIODARONE HCL 200 MG TAB PO SCH ×2 (10:10→22:00)
[2020-12-30 10:12] LABS: Calcium 6.3 mg/dL (8.5-10.1); Magnesium 2.6 mg/dL (1.6-2.6); Potassium 5.1 mmol/L (3.5-5.1)
[2020-12-30] MEDS: INSULIN LANTUS (GLARGINE) 1 /0.01ml (100units/ml) SC SCH (10:12)
[2020-12-30 10:15] LABS: Basophils # (auto) 0 10 ^3/uL (0-0.2); Basophils % (auto) 0.3 % (0.0-2.0); Eosinophils # (auto) 0.2 10 ^3/uL (0-0.8); Eosinophils % (auto) 1.6 % (0.0-7.0); Hematocrit 39.5 % (41.0-53.0); Hemoglobin 13.9 g/dL (13.5-17.5); Lymphocytes # (auto) 0.5 10 ^3/uL (0.4-5.4); Lymphocytes % (auto) 4.9 % (10.0-50.0); Mean Corpuscular Hemoglobin 30.6 pg (28.0-32.0); Mean Corpuscular Hgb Conc. 35.3 g/dL (32.0-36.0); Mean Corpuscular Volume 86.8 fL (80.0-100.0); Monocytes # (auto) 1.6 10 ^3/uL (0-1.3); Monocytes % (auto) 14.3 % (0.0-12.0); Neutrophils # (auto) 8.8 10 ^3/uL (1.6-8.6); Neutrophils % (auto) 78.9 % (37.0-80.0); Platelet Count (auto) 92 10^3/uL (140-450); Red Blood Cells 4.55 10^6/uL (4.5-5.90); Red Cell Distribution Width 12.6 % (11.8-14.3); White Blood Cell 11.2 10^3/uL (4.4-10.8)
[2020-12-30 10:20] LABS: Phosphorus 8.2 mg/dL (2.5-4.90)
[2020-12-30 10:23] LABS: BUN/Creatinine Ratio 17.3
[2020-12-30] MEDS ORDERED: DEXTROSE (50%) 50ML SYRG IV PRN (11:30)
[2020-12-30] MEDS ORDERED: Nepro With Carb Steady 1 Liter Bottle GT SCH (11:30)
[2020-12-30] MEDS: InsuLIN REG 1unit/0.01ml Soln (100units/ml) SC SCH ×3 (12:27→20:00)
[2020-12-30] MEDS: DOPamine 1600MCG/ML D5W 250 ML IV SCH (16:30)
[2020-12-30] MEDS: METOPROLOL TARTRATE 25 MG TAB PO SCH (22:00)
[2020-12-31] VITALS (62 sets, daily range): BP systolic 92–157; BP diastolic 50–81
[2020-12-31] MEDS: ACCU-CHEK COMFORT CURVE STRIP VI SCH ×6 (04:00→20:00)
[2020-12-31] MEDS: InsuLIN REG 1unit/0.01ml Soln (100units/ml) SC SCH ×6 (04:00→20:22)
[2020-12-31] MEDS: MIDAZOLAM DRIP 50 mg/50mL 50 ML IV SCH (04:45)
[2020-12-31] MEDS: CALCIUM ACETATE 667 MG CAP NG SCH ×3 (05:18→22:00)
[2020-12-31] MEDS: SOD CHL 0.45% 1,000 ML IV SCH ×3 (05:18→21:00)
[2020-12-31 05:58] LABS: Hematocrit 40.9 % (41.0-53.0); Hemoglobin 14.2 g/dL (13.5-17.5); Mean Corpuscular Hemoglobin 30.8 pg (28.0-32.0); Mean Corpuscular Hgb Conc. 34.6 g/dL (32.0-36.0); Mean Corpuscular Volume 88.8 fL (80.0-100.0); Platelet Count (auto) 121 10^3/uL (140-450); Red Cell Distribution Width 12.6 % (11.8-14.3); White Blood Cell 12.4 10^3/uL (4.4-10.8)
[2020-12-31 06:03] LABS: Basophils % (manual) 0 (0.0-2.0); Blast Cells 0; Eosinophils % (manual) 0 (0-7); Myelocytes % 0; Promyelocytes % 0; Reactive Lymphocytes 0
[2020-12-31 06:14] LABS: Potassium 5.5 mmol/L (3.5-5.1)
[2020-12-31 07:00] LABS: Albumin 1.6 g/dL (3.4-5.0); BUN/Creatinine Ratio 16.5; Bilirubin, Total 0.6 mg/dL (0.2-1.0); Calcium 6.6 mg/dL (8.5-10.1); Total Protein 5.8 g/dL (6.4-8.2)
[2020-12-31] MEDS ORDERED: SODIUM CHL 0.9% 1000 ML BAG XX ONE (08:30)
[2020-12-31] MEDS: PROPOFOL 100 ML IV SCH (08:30)
[2020-12-31] MEDS: INSULIN LANTUS (GLARGINE) 1 /0.01ml (100units/ml) SC SCH (09:47)
[2020-12-31] MEDS: ASPirin 81 mg TAB NG SCH (09:53)
[2020-12-31] MEDS: PANTOPRAZOLE 40 MG/10 ML VIAL INJ IV SCH (09:53)
[2020-12-31] MEDS: METOPROLOL TARTRATE 25 MG TAB PO SCH ×2 (09:54→22:00)
[2020-12-31] MEDS: AMIODARONE HCL 200 MG TAB PO SCH ×2 (09:54→22:00)
[2020-12-31] MEDS: DOPamine 1600MCG/ML D5W 250 ML IV SCH (09:55)
[2020-12-31] MEDS: SULFAMETHOX W/TRIMETH(800/160MG) DS TAB PO SCH ×2 (09:59→22:00)
[2020-12-31 10:38] LABS: Band Neutrophils % (manual) 12; Metamyelocytes % 3; Monocytes % (manual) 12 (0-12)
[2020-12-31 10:39] LABS: Lymphocytes % (manual) 2 (10.0-50.0)
[2020-12-31] MEDS: BUMETANIDE INJECTION 12.5 MG in GIVE UN-DILUTED 0 ML IV SCH (11:00)
[2020-12-31] MEDS ORDERED: SODIUM FERR GLUC 62.5MG/5ML 125 MG in SODIUM CHL 0.9% 100 ML IV SCH (12:00)
[2020-12-31 18:06] LABS: Albumin 1.6 g/dL (3.4-5.0); Potassium 5.2 mmol/L (3.5-5.1)
[2020-12-31 18:09] LABS: BUN/Creatinine Ratio 17.6; Bilirubin, Total 0.4 mg/dL (0.2-1.0); Total Protein 5.7 g/dL (6.4-8.2)
[2020-12-31 18:13] LABS: Calcium 5.8 mg/dL (8.5-10.1)
[2020-12-31] MEDS ORDERED: CALCIUM GLUC 4.65meq/50ml D5AE 50 ML IV ONE (19:15)
[2020-12-31] MEDS ORDERED: EPOETIN ALFA 10,000 UNIT/1 ML VIAL SC ONE (21:00)
[2021-01-01] VITALS (59 sets, daily range): BP systolic 91–165; BP diastolic 47–82
[2021-01-01] MEDS: InsuLIN REG 1unit/0.01ml Soln (100units/ml) SC SCH ×6 (01:14→20:00)
[2021-01-01] MEDS: MORPHINE SULF INJ 2 MG/ML SYRINGE 1ML IV PRN ×2 (03:12→08:38)
[2021-01-01] MEDS: ACCU-CHEK COMFORT CURVE STRIP VI SCH ×6 (04:28→20:00)
[2021-01-01] MEDS: MIDAZOLAM DRIP 50 mg/50mL 50 ML IV SCH (04:45)
[2021-01-01 05:59] LABS: Anion Gap 23 (5-15); Carbon Dioxide 16 mmol/L (21-32); Chloride 96 mmol/L (98-107); GFR African American 8 mL/min; Glucose 265 mg/dL (74-106); Sodium 135 mmol/L (136-145)
[2021-01-01 06:00] LABS: Alanine Aminotransferase 193 U/L (16-61); Albumin 1.7 g/dL (3.4-5.0); Aspartate Aminotransferase 157 U/L (15-37); Calcium 6.3 mg/dL (8.5-10.1); GFR Non-African American 6 mL/min
[2021-01-01 06:08] LABS: Alkaline Phosphatase 166 U/L (45-117); Bilirubin, Total 0.4 mg/dL (0.2-1.0)
[2021-01-01] MEDS: SOD CHL 0.45% 1,000 ML IV SCH (06:23)
[2021-01-01] MEDS: CALCIUM ACETATE 667 MG CAP NG SCH ×3 (06:24→22:00)
[2021-01-01 07:06] LABS: Hematocrit 44.1 % (41.0-53.0); Hemoglobin 15.1 g/dL (13.5-17.5); Mean Corpuscular Hemoglobin 30.1 pg (28.0-32.0); Mean Corpuscular Hgb Conc. 34.2 g/dL (32.0-36.0); Mean Corpuscular Volume 87.9 fL (80.0-100.0); Platelet Count (auto) 217 10^3/uL (140-450); Red Blood Cells 5.02 10^6/uL (4.5-5.90); Red Cell Distribution Width 12.8 % (11.8-14.3); White Blood Cell 16.1 10^3/uL (4.4-10.8)
[2021-01-01 07:18] LABS: Basophils % (manual) 0 (0.0-2.0); Blast Cells 0; Myelocytes % 0; Promyelocytes % 0; Reactive Lymphocytes 0
[2021-01-01] MEDS: PROPOFOL 100 ML IV SCH (08:30)
[2021-01-01] MEDS: METOPROLOL TARTRATE 25 MG TAB PO SCH ×2 (09:43→22:00)
[2021-01-01] MEDS: PANTOPRAZOLE 40 MG/10 ML VIAL INJ IV SCH (09:44)
[2021-01-01] MEDS: AMIODARONE HCL 200 MG TAB PO SCH ×2 (09:44→22:00)
[2021-01-01] MEDS: ASPirin 81 mg TAB NG SCH (09:44)
[2021-01-01] MEDS: INSULIN LANTUS (GLARGINE) 1 /0.01ml (100units/ml) SC SCH (09:45)
[2021-01-01] MEDS: SULFAMETHOX W/TRIMETH(800/160MG) DS TAB PO SCH ×2 (09:45→22:00)
[2021-01-01 10:20] LABS: BUN/Creatinine Ratio 16.6; Blood Urea Nitrogen > 150 mg/dL (7-18)
[2021-01-01] MEDS ORDERED: SODIUM CHL 0.9% 1000 ML BAG XX ONE ×2 (10:30)
[2021-01-01] MEDS: BUMETANIDE INJECTION 12.5 MG in GIVE UN-DILUTED 0 ML IV SCH (11:00)
[2021-01-01 14:43] LABS: Band Neutrophils % (manual) 6; Eosinophils % (manual) 2 (0-7); Lymphocytes % (manual) 5 (10.0-50.0); Metamyelocytes % 2; Monocytes % (manual) 10 (0-12)
[2021-01-01] MEDS ORDERED: Nepro With Carb Steady 1 Liter Bottle GT SCH (15:45)
[2021-01-01] MEDS ORDERED: EPOETIN ALFA 10,000 UNIT/1 ML VIAL SC ONE (21:00)
[2021-01-02] VITALS (60 sets, daily range): BP systolic 53–118; BP diastolic 22–74
[2021-01-02] MEDS: PHENYLEPHRINE IV 250 ML IV SCH ×6 (01:00→23:00)
[2021-01-02] MEDS: ACCU-CHEK COMFORT CURVE STRIP VI SCH ×6 (04:00→20:00)
[2021-01-02] MEDS: InsuLIN REG 1unit/0.01ml Soln (100units/ml) SC SCH ×6 (04:00→20:00)
[2021-01-02 04:48] LABS: Basophils # (auto) 0 10 ^3/uL (0-0.2); Basophils % (auto) 0.1 % (0.0-2.0); Eosinophils # (auto) 0 10 ^3/uL (0-0.8); Eosinophils % (auto) 0.1 % (0.0-7.0); Hematocrit 41.6 % (41.0-53.0); Hemoglobin 14.4 g/dL (13.5-17.5); Lymphocytes # (auto) 0.9 10 ^3/uL (0.4-5.4); Lymphocytes % (auto) 6.1 % (10.0-50.0); Mean Corpuscular Hemoglobin 30.7 pg (28.0-32.0); Mean Corpuscular Hgb Conc. 34.5 g/dL (32.0-36.0); Mean Corpuscular Volume 88.9 fL (80.0-100.0); Monocytes # (auto) 1.5 10 ^3/uL (0-1.3); Monocytes % (auto) 10.4 % (0.0-12.0); Neutrophils # (auto) 11.7 10 ^3/uL (1.6-8.6); Neutrophils % (auto) 83.3 % (37.0-80.0); Nucleated Red Blood Cells % 0.1 %; Platelet Count (auto) 195 10^3/uL (140-450); Red Blood Cells 4.68 10^6/uL (4.5-5.90); Red Cell Distribution Width 12.9 % (11.8-14.3); White Blood Cell 14.1 10^3/uL (4.4-10.8)
[2021-01-02 05:07] LABS: Potassium 5.1 mmol/L (3.5-5.1)
[2021-01-02] MEDS: CALCIUM ACETATE 667 MG CAP NG SCH ×3 (05:40→22:00)
[2021-01-02 05:43] LABS: Albumin 1.6 g/dL (3.4-5.0); Bilirubin, Total 0.4 mg/dL (0.2-1.0); Total Protein 5.6 g/dL (6.4-8.2)
[2021-01-02 05:47] LABS: BUN/Creatinine Ratio 19.3
[2021-01-02 05:48] LABS: Calcium 5.6 mg/dL (8.5-10.1)
[2021-01-02] MEDS: ACETAMINOPHEN 325 MG TAB PO PRN ×2 (08:52→23:00)
[2021-01-02] MEDS: ASPirin 81 mg TAB NG SCH (09:38)
[2021-01-02] MEDS: METOPROLOL TARTRATE 25 MG TAB PO SCH ×2 (09:39→22:00)
[2021-01-02] MEDS: SULFAMETHOX W/TRIMETH(800/160MG) DS TAB PO SCH ×2 (09:39→22:00)
[2021-01-02] MEDS: INSULIN LANTUS (GLARGINE) 1 /0.01ml (100units/ml) SC SCH (09:41)
[2021-01-02] MEDS: AMIODARONE HCL 200 MG TAB PO SCH ×2 (10:00→22:00)
[2021-01-02] MEDS: PANTOPRAZOLE 40 MG/10 ML VIAL INJ IV SCH (10:20)
[2021-01-02] MEDS: BUMETANIDE INJECTION 12.5 MG in GIVE UN-DILUTED 0 ML IV SCH (10:20)
[2021-01-02 11:36] LABS: Hepatitis A Ab IgM Negative; Hepatitis B Core IgM Negative; Hepatitis B Surface Antigen Negative (Negative); Hepatitis C Antibody Negative (Negative)
[2021-01-02] MEDS ORDERED: SODIUM CHL 0.9% 1000 ML BAG XX ONE (13:15)
[2021-01-02] MEDS ORDERED: CATHFLO ACTIVASE (ALTEPLASE) 2 MG VIAL IV ONE (15:00)
[2021-01-02] MEDS ORDERED: BUMETANIDE 2.5mg/10ml (0.25 mg/ml) INJ IV ONE (15:00)
[2021-01-02] MEDS: NOREPINEPHRINE 8 MG/250ML KIT 250 ML IV SCH (21:45)
[2021-01-03] VITALS (63 sets, daily range): BP systolic 83–140; BP diastolic 41–88
[2021-01-03] MEDS: InsuLIN REG 1unit/0.01ml Soln (100units/ml) SC SCH ×6 (00:22→20:26)
[2021-01-03] MEDS: ACCU-CHEK COMFORT CURVE STRIP VI SCH ×6 (00:22→20:25)
[2021-01-03] MEDS: PHENYLEPHRINE IV 250 ML IV SCH ×3 (02:39→08:45)
[2021-01-03 04:02] LABS: Anion Gap 22 (5-15); Carbon Dioxide 16 mmol/L (21-32); Chloride 102 mmol/L (98-107); Potassium 4.5 mmol/L (3.5-5.1); Sodium 140 mmol/L (136-145)
[2021-01-03 04:05] LABS: BUN/Creatinine Ratio 18.1; GFR African American 7 mL/min; GFR Non-African American 6 mL/min
[2021-01-03 04:43] LABS: Calcium < 5.0 mg/dL (8.5-10.1); Glucose 428 mg/dL (74-106)
[2021-01-03 04:44] LABS: Blood Urea Nitrogen 178 mg/dL (7-18)
[2021-01-03] MEDS: MIDAZOLAM DRIP 50 mg/50mL 50 ML IV SCH ×2 (04:45→11:48)
[2021-01-03] MEDS: ACETAMINOPHEN 325 MG TAB PO PRN ×2 (05:10→19:59)
[2021-01-03] MEDS: CALCIUM ACETATE 667 MG CAP NG SCH ×3 (05:55→21:44)
[2021-01-03 07:57] LABS: Hematocrit 44.9 % (41.0-53.0); Hemoglobin 14.7 g/dL (13.5-17.5); Mean Corpuscular Hemoglobin 30.4 pg (28.0-32.0); Mean Corpuscular Hgb Conc. 32.8 g/dL (32.0-36.0); Mean Corpuscular Volume 92.8 fL (80.0-100.0); Platelet Count (auto) 190 10^3/uL (140-450); Red Blood Cells 4.84 10^6/uL (4.5-5.90); Red Cell Distribution Width 13.4 % (11.8-14.3); White Blood Cell 15.2 10^3/uL (4.4-10.8)
[2021-01-03 08:04] LABS: Basophils % (manual) 0 (0.0-2.0); Blast Cells 0; Eosinophils % (manual) 0 (0-7); Myelocytes % 0; Promyelocytes % 0; Reactive Lymphocytes 0
[2021-01-03 08:26] LABS: Band Neutrophils % (manual) 2; Lymphocytes % (manual) 14 (10.0-50.0); Metamyelocytes % 1; Monocytes % (manual) 10 (0-12)
[2021-01-03] MEDS: METOPROLOL TARTRATE 25 MG TAB PO SCH ×2 (09:19→21:44)
[2021-01-03] MEDS: SULFAMETHOX W/TRIMETH(800/160MG) DS TAB PO SCH ×2 (09:39→21:44)
[2021-01-03] MEDS: PANTOPRAZOLE 40 MG/10 ML VIAL INJ IV SCH (09:39)
[2021-01-03] MEDS: ASPirin 81 mg TAB NG SCH (09:39)
[2021-01-03] MEDS: AMIODARONE HCL 200 MG TAB PO SCH ×2 (09:39→21:44)
[2021-01-03] MEDS: INSULIN LANTUS (GLARGINE) 1 /0.01ml (100units/ml) SC SCH (09:42)
[2021-01-03] MEDS: BUMETANIDE INJECTION 12.5 MG in GIVE UN-DILUTED 0 ML IV SCH (11:00)
[2021-01-03] MEDS: NOREPINEPHRINE 8 MG/250ML KIT 250 ML IV SCH (21:46)
[2021-01-04] VITALS (81 sets, daily range): BP systolic 81–118; BP diastolic 43–64
[2021-01-04] MEDS: ACCU-CHEK COMFORT CURVE STRIP VI SCH ×6 (00:07→20:11)
[2021-01-04] MEDS: InsuLIN REG 1unit/0.01ml Soln (100units/ml) SC SCH ×6 (00:15→20:14)
[2021-01-04] MEDS: MIDAZOLAM DRIP 50 mg/50mL 50 ML IV SCH ×2 (04:45→11:00)
[2021-01-04] MEDS: CALCIUM ACETATE 667 MG CAP NG SCH ×4 (05:51→22:00)
[2021-01-04 06:01] LABS: Potassium 5.4 mmol/L (3.5-5.1)
[2021-01-04 06:13] LABS: BUN/Creatinine Ratio 19.8
[2021-01-04] MEDS: BUMETANIDE INJECTION 12.5 MG in GIVE UN-DILUTED 0 ML IV SCH (06:59)
[2021-01-04 07:36] LABS: Hemoglobin 14.5 g/dL (13.5-17.5)
[2021-01-04 07:39] LABS: Hematocrit 43.1 % (41.0-53.0); Mean Corpuscular Hemoglobin 30.8 pg (28.0-32.0); Mean Corpuscular Hgb Conc. 33.5 g/dL (32.0-36.0); Mean Corpuscular Volume 91.8 fL (80.0-100.0); Platelet Count (auto) 138 10^3/uL (140-450); Red Cell Distribution Width 13.5 % (11.8-14.3)
[2021-01-04 08:22] LABS: Band Neutrophils % (manual) 0; Basophils % (manual) 0 (0.0-2.0); Blast Cells 0; Eosinophils % (manual) 0 (0-7); Metamyelocytes % 0; Myelocytes % 0; Promyelocytes % 0; Reactive Lymphocytes 0; White Blood Cell 32.5 10^3/uL (4.4-10.8)
[2021-01-04 08:31] LABS: Magnesium 1.5 mg/dL (1.6-2.6)
[2021-01-04 08:32] LABS: Phosphorus 1.5 mg/dL (2.5-4.90)
[2021-01-04 09:49] LABS: Lymphocytes % (manual) 6 (10.0-50.0); Monocytes % (manual) 3 (0-12)
[2021-01-04] MEDS: PANTOPRAZOLE 40 MG/10 ML VIAL INJ IV SCH (09:52)
[2021-01-04] MEDS: ASPirin 81 mg TAB NG SCH (09:52)
[2021-01-04] MEDS: SULFAMETHOX W/TRIMETH(800/160MG) DS TAB PO SCH ×2 (09:52→21:55)
[2021-01-04] MEDS: METOPROLOL TARTRATE 25 MG TAB PO SCH ×2 (09:53→21:55)
[2021-01-04] MEDS: AMIODARONE HCL 200 MG TAB PO SCH ×2 (09:53→21:55)
[2021-01-04] MEDS: INSULIN LANTUS (GLARGINE) 1 /0.01ml (100units/ml) SC SCH (10:09)
[2021-01-04] MEDS: NOREPINEPHRINE 8 MG/250ML KIT 250 ML IV SCH (10:30)
[2021-01-05] VITALS (68 sets, daily range): BP systolic 93–122; BP diastolic 36–58
[2021-01-05] MEDS: ACCU-CHEK COMFORT CURVE STRIP VI SCH ×6 (00:10→20:00)
[2021-01-05] MEDS: InsuLIN REG 1unit/0.01ml Soln (100units/ml) SC SCH ×6 (00:11→20:00)
[2021-01-05] MEDS: NOREPINEPHRINE 8 MG/250ML KIT 250 ML IV SCH ×2 (01:01→16:54)
[2021-01-05] MEDS: BUMETANIDE INJECTION 12.5 MG in GIVE UN-DILUTED 0 ML IV SCH ×2 (05:40→18:50)
[2021-01-05] MEDS: CALCIUM ACETATE 667 MG CAP NG SCH ×3 (06:00→21:22)
[2021-01-05 06:23] LABS: Hemoglobin 12.8 g/dL (13.5-17.5); Mean Corpuscular Volume 90.7 fL (80.0-100.0)
[2021-01-05 06:26] LABS: Hematocrit 38.6 % (41.0-53.0); Mean Corpuscular Hgb Conc. 33.1 g/dL (32.0-36.0); Platelet Count (auto) 127 10^3/uL (140-450); Red Blood Cells 4.26 10^6/uL (4.5-5.90); Red Cell Distribution Width 13.3 % (11.8-14.3)
[2021-01-05 06:33] LABS: Basophils % (manual) 0 (0.0-2.0); Blast Cells 0; Eosinophils % (manual) 0 (0-7); Metamyelocytes % 0; Myelocytes % 0; Promyelocytes % 0; Reactive Lymphocytes 0
[2021-01-05 06:50] LABS: BUN/Creatinine Ratio 22.1
[2021-01-05 06:55] LABS: Calcium 5.1 mg/dL (8.5-10.1); Potassium 5.6 mmol/L (3.5-5.1)
[2021-01-05 07:09] LABS: Band Neutrophils % (manual) 2; Lymphocytes % (manual) 2 (10.0-50.0); Monocytes % (manual) 4 (0-12)
[2021-01-05] MEDS: ASPirin 81 mg TAB NG SCH (09:34)
[2021-01-05] MEDS: AMIODARONE HCL 200 MG TAB PO SCH ×2 (09:34→21:22)
[2021-01-05] MEDS: METOPROLOL TARTRATE 25 MG TAB PO SCH ×2 (09:34→21:00)
[2021-01-05] MEDS: SULFAMETHOX W/TRIMETH(800/160MG) DS TAB PO SCH ×2 (09:34→21:22)
[2021-01-05] MEDS: PANTOPRAZOLE 40 MG/10 ML VIAL INJ IV SCH (09:35)
[2021-01-05] MEDS: INSULIN LANTUS (GLARGINE) 1 /0.01ml (100units/ml) SC SCH (09:48)
[2021-01-06] VITALS (57 sets, daily range): BP systolic 83–127; BP diastolic 36–70
[2021-01-06 03:54] LABS: Red Cell Distribution Width 13.4 % (11.8-14.3)
[2021-01-06 03:59] LABS: Hematocrit 34.9 % (41.0-53.0); Hemoglobin 11.7 g/dL (13.5-17.5); Mean Corpuscular Hemoglobin 30.8 pg (28.0-32.0); Mean Corpuscular Hgb Conc. 33.6 g/dL (32.0-36.0); Mean Corpuscular Volume 91.7 fL (80.0-100.0); Platelet Count (auto) 122 10^3/uL (140-450)
[2021-01-06] MEDS: InsuLIN REG 1unit/0.01ml Soln (100units/ml) SC SCH ×6 (04:00→19:32)
[2021-01-06] MEDS: ACCU-CHEK COMFORT CURVE STRIP VI SCH ×6 (04:00→20:08)
[2021-01-06 04:44] LABS: Anion Gap 20 (5-15); Carbon Dioxide 16 mmol/L (21-32); Chloride 101 mmol/L (98-107); GFR African American 6 mL/min; GFR Non-African American 5 mL/min; Glucose 362 mg/dL (74-106); Sodium 137 mmol/L (136-145)
[2021-01-06 05:06] LABS: Band Neutrophils % (manual) 0; Basophils % (manual) 0 (0.0-2.0); Blast Cells 0; Eosinophils % (manual) 0 (0-7); Metamyelocytes % 0; Myelocytes % 0; Promyelocytes % 0; Reactive Lymphocytes 0
[2021-01-06 05:15] LABS: BUN/Creatinine Ratio 22.6
[2021-01-06 05:17] LABS: Blood Urea Nitrogen 262 mg/dL (7-18); Calcium < 5.0 mg/dL (8.5-10.1); Phosphorus 13.6 mg/dL (2.5-4.90); Potassium 6.1 mmol/L (3.5-5.1)
[2021-01-06] MEDS: NOREPINEPHRINE 8 MG/250ML KIT 250 ML IV SCH ×2 (05:45→14:42)
[2021-01-06] MEDS: CALCIUM ACETATE 667 MG CAP NG SCH ×3 (05:51→21:42)
[2021-01-06 08:28] LABS: Lymphocytes % (manual) 7 (10.0-50.0); Monocytes % (manual) 2 (0-12)
[2021-01-06] MEDS ORDERED: SODIUM BICARBONATE 50ML VIAL 100 ML in D5W 5% 1,000 ML IV SCH (08:45)
[2021-01-06] MEDS: METOPROLOL TARTRATE 25 MG TAB PO SCH ×2 (10:00→21:43)
[2021-01-06] MEDS: PANTOPRAZOLE 40 MG/10 ML VIAL INJ IV SCH (10:00)
[2021-01-06] MEDS: ASPirin 81 mg TAB NG SCH (10:17)
[2021-01-06] MEDS: SULFAMETHOX W/TRIMETH(800/160MG) DS TAB PO SCH ×2 (10:17→21:42)
[2021-01-06] MEDS: AMIODARONE HCL 200 MG TAB PO SCH ×2 (10:17→21:43)
[2021-01-06] MEDS: INSULIN LANTUS (GLARGINE) 1 /0.01ml (100units/ml) SC SCH (10:28)
[2021-01-06] MEDS: SODIUM ZIRCONIUM CYCL 10 GM PAK PO SCH ×2 (13:54→21:43)
[2021-01-06] MEDS: SODIUM BICARBONATE 50ML VIAL 100 ML in D5W 5% 1,000 ML IV SCH ×2 (14:00→21:06)
[2021-01-06] MEDS: BUMETANIDE INJECTION 12.5 MG in GIVE UN-DILUTED 0 ML IV SCH (19:27)
[2021-01-06] MEDS: DOPamine 1600MCG/ML D5W 250 ML IV SCH (19:28)
[2021-01-07] VITALS (84 sets, daily range): BP systolic 72–172; BP diastolic 34–143
[2021-01-07] MEDS: InsuLIN REG 1unit/0.01ml Soln (100units/ml) SC SCH ×5 (00:14→16:04)
[2021-01-07 03:50] LABS: Basophils # (auto) 0 10 ^3/uL (0-0.2); Basophils % (auto) 0.2 % (0.0-2.0); Eosinophils # (auto) 0 10 ^3/uL (0-0.8); Lymphocytes # (auto) 0.7 10 ^3/uL (0.4-5.4); Lymphocytes % (auto) 4.6 % (10.0-50.0); Mean Corpuscular Hgb Conc. 33.5 g/dL (32.0-36.0); Mean Corpuscular Volume 89.6 fL (80.0-100.0); Monocytes # (auto) 1.2 10 ^3/uL (0-1.3); Monocytes % (auto) 7.2 % (0.0-12.0); Neutrophils # (auto) 14.1 10 ^3/uL (1.6-8.6); Nucleated Red Blood Cells % 0.1 %; Platelet Count (auto) 120 10^3/uL (140-450); Red Blood Cells 3.68 10^6/uL (4.5-5.90); Red Cell Distribution Width 13.2 % (11.8-14.3)
[2021-01-07 04:02] LABS: Anion Gap 19 (5-15); Carbon Dioxide 20 mmol/L (21-32); Chloride 91 mmol/L (98-107); Glucose 349 mg/dL (74-106); Magnesium 2.8 mg/dL (1.6-2.6); Sodium 130 mmol/L (136-145)
[2021-01-07 04:04] LABS: GFR African American 6 mL/min; GFR Non-African American 5 mL/min
[2021-01-07] MEDS: SODIUM BICARBONATE 50ML VIAL 100 ML in D5W 5% 1,000 ML IV SCH ×3 (04:08→14:20)
[2021-01-07] MEDS: ACCU-CHEK COMFORT CURVE STRIP VI SCH ×5 (04:22→16:02)
[2021-01-07] MEDS: SODIUM ZIRCONIUM CYCL 10 GM PAK PO SCH ×2 (06:00→13:35)
[2021-01-07] MEDS: CALCIUM ACETATE 667 MG CAP NG SCH ×3 (06:00→21:50)
[2021-01-07 06:01] LABS: BUN/Creatinine Ratio 24.7
[2021-01-07 06:16] LABS: Potassium 6.4 mmol/L (3.5-5.1)
[2021-01-07 06:17] LABS: Blood Urea Nitrogen 286 mg/dL (7-18); Calcium < 5.0 mg/dL (8.5-10.1); Phosphorus 13.2 mg/dL (2.5-4.90)
[2021-01-07] MEDS: PANTOPRAZOLE 40 MG/10 ML VIAL INJ IV SCH (09:43)
[2021-01-07] MEDS: AMIODARONE HCL 200 MG TAB PO SCH ×2 (09:44→21:50)
[2021-01-07] MEDS: ASPirin 81 mg TAB NG SCH (09:44)
[2021-01-07] MEDS: INSULIN LANTUS (GLARGINE) 1 /0.01ml (100units/ml) SC SCH (09:47)
[2021-01-07] MEDS: METOPROLOL TARTRATE 25 MG TAB PO SCH ×2 (09:47→21:50)
[2021-01-07] MEDS: NOREPINEPHRINE 8 MG/250ML KIT 250 ML IV SCH (09:48)
[2021-01-07] MEDS: SULFAMETHOX W/TRIMETH(800/160MG) DS TAB PO SCH (09:54)
[2021-01-07] MEDS ORDERED: InsuLIN REG 1unit/0.01ml Soln (100units/ml) IV ONE (10:30)
[2021-01-07] MEDS ORDERED: BUMETANIDE INJECTION 12.5 MG in GIVE UN-DILUTED 0 ML IV SCH (10:30)
[2021-01-07] MEDS ORDERED: DEXTROSE (50%) 50ML SYRG IV ONE (10:30)
[2021-01-07] MEDS ORDERED: CALCIUM CHL 100MG/ML 1,000 MG in D5W 5% 100 ML IV ONE (10:30)
[2021-01-07] MEDS ORDERED: SODIUM CHL 0.9% 1000 ML BAG XX ONE (10:30)
[2021-01-07] MEDS: BUMETANIDE INJECTION 25 MG in GIVE UN-DILUTED 0 ML IV SCH (12:12)
[2021-01-07] MEDS ORDERED: DEXTROSE (50%) 50ML SYRG IV PRN (13:30)
[2021-01-07] MEDS: DOPamine 1600MCG/ML D5W 250 ML IV SCH (14:52)
[2021-01-07] MEDS ORDERED: PHENYLEPHRINE IV 250 ML IV ONE (20:58)
[2021-01-07] MEDS ORDERED: EPOETIN ALFA 10,000 UNIT/1 ML VIAL SC ONE (21:00)
[2021-01-07] MEDS ORDERED: INSULIN LANTUS (GLARGINE) 1 /0.01ml (100units/ml) SC SCH (22:00)
[2021-01-08] VITALS (13 sets, daily range): BP systolic 91–120; BP diastolic 30–81
[2021-01-08] MEDS: ACCU-CHEK COMFORT CURVE STRIP VI SCH
[2021-01-08] MEDS: InsuLIN REG 1unit/0.01ml Soln (100units/ml) SC SCH (00:27)
[2021-01-08] MEDS: BUMETANIDE INJECTION 25 MG in GIVE UN-DILUTED 0 ML IV SCH (00:37)
[2021-01-08] MEDS: SODIUM BICARBONATE 50ML VIAL 100 ML in D5W 5% 1,000 ML IV SCH (00:37)
[2021-01-08] MEDS: NOREPINEPHRINE 8 MG/250ML KIT 250 ML IV SCH (00:39)
[2021-01-08 04:22] LABS: Basophils # (auto) 0 10 ^3/uL (0-0.2); Basophils % (auto) 0.2 % (0.0-2.0); Eosinophils # (auto) 0 10 ^3/uL (0-0.8); Eosinophils % (auto) 0.1 % (0.0-7.0); Hematocrit 30.5 % (41.0-53.0); Lymphocytes # (auto) 1.3 10 ^3/uL (0.4-5.4); Lymphocytes % (auto) 12.1 % (10.0-50.0); Mean Corpuscular Hemoglobin 30.6 pg (28.0-32.0); Mean Corpuscular Hgb Conc. 32.6 g/dL (32.0-36.0); Mean Corpuscular Volume 93.9 fL (80.0-100.0); Monocytes # (auto) 1.2 10 ^3/uL (0-1.3); Monocytes % (auto) 10.9 % (0.0-12.0); Neutrophils # (auto) 8.2 10 ^3/uL (1.6-8.6); Neutrophils % (auto) 76.7 % (37.0-80.0); Nucleated Red Blood Cells % 0.2 %; Platelet Count (auto) 121 10^3/uL (140-450); Red Blood Cells 3.25 10^6/uL (4.5-5.90); Red Cell Distribution Width 13.4 % (11.8-14.3); White Blood Cell 10.7 10^3/uL (4.4-10.8)
== END 2021-01-08 03:48 | DRG 870 ==
LOC: EDBD 20:46 → ER 20:48 → TELE 20:49 → CATH ICU 12-27 21:35
PROVIDERS: ADMIT Nurse Practitioner; ATTEND Internal Medicine
PROC: 05HY33Z Insertion of Infusion Device into Upper Vein, Percutaneous Approach (ICD-10-PCS; 2020-12-25)
PROC: 5A1955Z Respiratory Ventilation, Greater than 96 Consecutive Hours (ICD-10-PCS; principal; 2020-12-29)
PROC: 06HM33Z Insertion of Infusion Device into Right Femoral Vein, Percutaneous Approach (ICD-10-PCS; 2020-12-29)
PROC: 0BH17EZ Insertion of Endotracheal Airway into Trachea, Via Natural or Artificial Opening (ICD-10-PCS; 2020-12-29)
PROC: 5A1D70Z Performance of Urinary Filtration, Intermittent, Less than 6 Hours Per Day (ICD-10-PCS; 2020-12-30)
PROC: 5A1D70Z Performance of Urinary Filtration, Intermittent, Less than 6 Hours Per Day (ICD-10-PCS; 2021-01-01)
PROC: 5A1D70Z Performance of Urinary Filtration, Intermittent, Less than 6 Hours Per Day (ICD-10-PCS; 2021-01-03)
PROC: 5A1D70Z Performance of Urinary Filtration, Intermittent, Less than 6 Hours Per Day (ICD-10-PCS; 2021-01-07)
DX: A41.9 Sepsis, unspecified organism (principal); E11.10 Type 2 diabetes mellitus with ketoacidosis without coma; G93.41 Metabolic encephalopathy; I63.9 Cerebral infarction, unspecified; N17.0 Acute kidney failure with tubular necrosis; I21.A1 Myocardial infarction type 2; J96.00 Acute respiratory failure, unspecified whether with hypoxia or hypercapnia; I50.41 Acute combined systolic (congestive) and diastolic (congestive) heart failure; R65.21 Severe sepsis with septic shock; N39.0 Urinary tract infection, site not specified; M62.82 Rhabdomyolysis; E87.0 Hyperosmolality and hypernatremia; I13.0 Hypertensive heart and chronic kidney disease with heart failure and stage 1 through stage 4 chronic kidney disease, or unspecified chronic kidney disease; E44.0 Moderate protein-calorie malnutrition; E86.0 Dehydration; N18.9 Chronic kidney disease, unspecified; D72.829 Elevated white blood cell count, unspecified; E78.5 Hyperlipidemia, unspecified; J32.9 Chronic sinusitis, unspecified; D69.6 Thrombocytopenia, unspecified; E83.39 Other disorders of phosphorus metabolism; E87.5 Hyperkalemia; E11.22 Type 2 diabetes mellitus with diabetic chronic kidney disease; E11.42 Type 2 diabetes mellitus with diabetic polyneuropathy; E66.9 Obesity, unspecified; G89.4 Chronic pain syndrome; N40.0 Benign prostatic hyperplasia without lower urinary tract symptoms; E83.51 Hypocalcemia; Z20.822 Contact with and (suspected) exposure to COVID-19; I46.9 Cardiac arrest, cause unspecified; Z66 Do not resuscitate; Z79.4 Long term (current) use of insulin; Z79.82 Long term (current) use of aspirin; Z79.899 Other long term (current) drug therapy; Z82.49 Family history of ischemic heart disease and other diseases of the circulatory system; Z86.73 Personal history of transient ischemic attack (TIA), and cerebral infarction without residual deficits; Z68.38 Body mass index [BMI] 38.0-38.9, adult; Z88.0 Allergy status to penicillin
CPT/HCPCS: 31500; 36415; 36556; 36600; 51702; 70450; 71045; 72125; 76775; 80048; 80053; 80061; 80074; 80307; 81001; 82010; 82140; 82306; 82550; 82570; 82607; 82728; 82746; 82805; 82962; 83036; 83540; 83550; 83605; 83735; 83880; 83930; 83935; 83970; 84100; 84156; 84300; 84443; 84484; 85007; 85014; 85018; 85025; 85027; 85610; 85730; 87040; 87070; 87077; 87081; 87086; 87186; 87205; 87426; 87804; 90935; 93005; 93306; 93886; 94002; 94003; 96365; 96367; 96375; 99152; 99153; 99291; C9113; G0378; J0330; J0610; J0696; J0885; J1642; J1815; J2250; J2704; J3480; J7060